=== PATIENT | female | born 1950 | race Caucasian/White ===

== ENCOUNTER 2016-12-16 14:25 | Outpatient (CLI) ==
[2015-10-30 14:48] VITALS: BMI 15.5
[2016-12-16 14:50] LABS: BASOPHILS % (AUTO) 0.4 % (0.0-3.0); HEMATOCRIT 38.2 % (37.0-47.0); HEMOGLOBIN 13.3 g/dl (12.0-16.0); IMMATURE GRANULOCYTE % (AUTO) 0.2 % (0.0-5.0); LYMPHOCYTES # (AUTO) 0.8 K/uL (0.60-3.4); LYMPHOCYTES % (AUTO) 17.1 (10.0-50.0); MEAN CORPUSCULAR HEMOGLOBIN 33.4 pg (27.0-31.0); MEAN CORPUSCULAR HGB CONC 34.8 (31.8-35.4); MONOCYTES # (AUTO) 0.4 K/uL (0.4-2.0); MONOCYTES % (AUTO) 7.7 (0-10); NEUTROPHILS # (AUTO) 3.6 K/ul (2.0-6.9); NEUTROPHILS % (AUTO) 74.6; PLATELET COUNT 173 10^3/uL (140-440); RED BLOOD COUNT 3.98 10^6/ul (4.20-5.40)
[2016-12-16 14:54] LABS: BILIRUBIN,URINE Negative (NEGATIVE); KETONES,URINE Negative (NEGATIVE); LEUKOCYTE ESTERASE ,URINE Negative (NEGATIVE); NITRITE,URINE Negative (NEGATIVE); PROTEIN,URINE Negative (NEGATIVE); URINE, BLOOD 1+ (NEGATIVE)
[2016-12-16 15:06] LABS: ADD URINE MICROSCOPIC YES; FLU INTERNAL QC INTERNAL QC VALID; RAPID FLU A NEGATIVE (NEGATIVE); RAPID FLU B NEGATIVE (NEGATIVE)
[2016-12-16 15:08] LABS: BACTERIA,URINE 1+ (NOT PRESENT)
[2016-12-16 16:16] LABS: ALBUMIN 3.6 g/dL (3.4-5.0); ALBUMIN/GLOBULIN RATIO 1.24; ANION GAP 15.5; BILIRUBIN,TOTAL 0.28 mg/dL (0.00-1.20); BUN/CREATININE RATIO 11.9; CALCIUM 8.9 mg/dL (8.2-10.2); CHOL/HDL RATIO 3.5 (4.5-5.5); CREATININE 0.84 mg/dL (0.60-1.30); POTASSIUM 3.5 mmol/L (3.5-5.10); TOTAL PROTEIN 6.5 g/dL (5.8-8.1)
--- NOTE | 2016-12-16 16:34 | DI ---
EXAM: Two views of the chest. History: Weight loss, chronic obstructive pulmonary disease Comparison: Chest radiograph 04/07/2015 Findings: Heart size is normal. Hyperinflation with increase in retrosternal clear space. No foca l consolidation. No appreciable pleural fluid and no pneumothorax. No acute osseous abnormalities. Impression: No acute cardiopulmonary process. Chronic obstructive pulmonary disease.
== END 2016-12-16 14:26 | disposition home or self-care (01) ==
LOC: LAB 14:25
PROVIDERS: ATTEND Family Medicine
DX: R63.4 Abnormal weight loss (principal); J44.9 Chronic obstructive pulmonary disease, unspecified; R05 Cough; R06.02 Shortness of breath; I10 Essential (primary) hypertension; E78.5 Hyperlipidemia, unspecified; Z91.14 Patient's other noncompliance with medication regimen
CPT/HCPCS: 36415; 80053; 80061; 81001; 83036; 84439; 84443; 85025; 87086; 87804

== ENCOUNTER 2018-04-01 15:43 | Outpatient (CLI) | payer OTHER ==
[2015-10-30 14:48] VITALS: BMI 15.5
--- NOTE | 2018-04-01 16:07 | DI ---
EXAM: Two views of the chest. History: Weight loss. Comparison: Chest radiograph 12/16/2016 Findings: Heart size is normal. No focal consolidation. No appreciable pleural fluid and no pneumo thorax. No acute osseous abnormalities. Hyperinflation with increase in retrosternal clear space ag ain noted. Impression: No acute cardiopulmonary process. Chronic obstructive pulmonary disease. No change com pared to the prior study.
== END 2018-04-01 15:44 | disposition home or self-care (01) ==
LOC: RAD 15:43
PROVIDERS: ATTEND Family Medicine
DX: R63.4 Abnormal weight loss (principal); Z72.0 Tobacco use

== ENCOUNTER 2018-11-18 10:06 | Outpatient (CLI) | payer OTHER ==
[2015-10-30 14:48] VITALS: BMI 15.5
--- NOTE | 2018-11-18 10:38 | DI ---
EXAM: CHEST FRONTAL AND LATERAL VIEWS HISTORY: Chronic obstructive pulmonary disease. COMPARISON: 04/01/2018 FINDINGS: Heart size and mediastinal contour remain within normal limits. Hyperinflation is prese nt. Diffuse lucency of the lung zones consistent with pulmonary emphysema. No acute infiltrates are seen. No vascular congestion. There is no consolidation, visible pleural fluid or pneumothorax. B ones reveal no acute fracture. IMPRESSION: Findings consistent with chronic obstructive pulmonary disease. No acute cardiopulmona ry process or change since prior study.
== END 2018-11-18 10:07 | disposition home or self-care (01) ==
LOC: LAB 10:06
PROVIDERS: ATTEND Family Medicine
DX: E78.5 Hyperlipidemia, unspecified (principal); R63.4 Abnormal weight loss; J44.9 Chronic obstructive pulmonary disease, unspecified; F32.9 Major depressive disorder, single episode, unspecified; Z79.899 Other long term (current) drug therapy
CPT/HCPCS: 36415; 80053; 80061; 80306; 81001; 84439; 84443; 85025